=== PATIENT | female | born 1940 | race Caucasian/White ===

== ENCOUNTER → 2019-06-14 | Outpatient (CLI) | payer MEDICARE, OTHER ==
[2019-06-14 16:36] LABS: Basophils # (A) 0.1 k/uL (0-0.2); Basophils % (A) 1 %; Eosinophils # (A) 0.2 k/uL (0-0.7); Eosinophils % (A) 2 %; HCT 41.9 % (34.0-46.0); HGB 13.3 gm/dL (11.4-16.0); Lymphocytes # (A) 3.4 k/uL (1.0-4.8); Lymphocytes % (A) 29 %; MCH 31.2 pg (25.0-35.0); MCHC 31.7 g/dL (31.0-37.0); MCV 98.2 fL (80.0-100.0); Mean Platelet Volume 7.6; Monocytes # (A) 0.8 k/uL (0-1.0); Monocytes % (A) 7 %; Neutrophils # (A) 7.2 k/uL (1.3-7.7); Neutrophils % (A) 61 %; Platelet Count 225 k/uL (150-450); RBC 4.26 m/uL (3.80-5.40); RDW 12.9 % (11.5-15.5); WBC 11.8 k/uL (3.8-10.6)
[2019-06-14 16:46] LABS: ALT 15 U/L (9-52); AST 19 U/L (14-36); African American GFR (CKD) >90 (>60 ml/min/1.73 sqM); Albumin 4.2 g/dL (3.5-5.0); Alkaline Phosphatase 60 U/L (38-126); Anion Gap 9 mmol/L; Blood Urea Nitrogen 20 mg/dL (7-17); Calcium 9.5 mg/dL (8.4-10.2); Carbon Dioxide 26 mmol/L (22-30); Chloride 107 mmol/L (98-107); Glucose 105 mg/dL (74-99); Potassium 4.1 mmol/L (3.5-5.1); Sodium 142 mmol/L (137-145); Total Bilirubin 0.3 mg/dL (0.2-1.3); Total Protein 6.9 g/dL (6.3-8.2)
[2019-06-14 16:48] LABS: Prothrombin Time 10.9 sec (9.0-12.0)
== END | disposition home or self-care (01) ==
LOC: LABPAT 15:17
PROVIDERS: ATTEND Orthopaedic Surgery
DX: Z01.818 Encounter for other preprocedural examination (principal); M16.11 Unilateral primary osteoarthritis, right hip; Z01.812 Encounter for preprocedural laboratory examination
CPT/HCPCS: 80053; 85025; 85610; 87070; 93005

== ENCOUNTER 2019-06-20 09:05 | Inpatient (IN) | payer MEDICARE, OTHER ==
[~2019-06-20 09:05] MED LIST: ACETAMINOPHEN TAB 500 MG TAB PO ONE; DEXAMETHASONE SOD PHOSPHATE 10 MG/ML 1 ML VIAL IV ONE; HYDROmorphone 0.5 MG/0.5 ML SYRINGE IVP PRN; LACTATED RINGERS 1,000 ML IV SCH; MELOXICAM 7.5 MG TAB PO ONE; MIDAZOLAM 2 MG/2 ML VIAL IV PRN; ONDANSETRON 4 MG/2 ML VIAL IVP ONE; TRANEXAMIC ACID 1,000 MG in SODIUM CHLORIDE 0.9% 100 ML IVPB ONE
[2019-06-20] MEDS ORDERED: HYDROcodone/APAP 5-325MG 1 EACH TAB PO PRN (09:32)
[2019-06-20] MEDS ORDERED: HYDROmorphone 0.5 MG/0.5 ML SYRINGE IVP PRN ×3 (09:32)
[2019-06-20] MEDS ORDERED: DIAZEPAM 5 MG TAB PO PRN (09:32)
[2019-06-20] MEDS ORDERED: MAGNESIUM HYDROXIDE 2,400 MG/10 ML CUP PO PRN (09:32)
[2019-06-20] MEDS ORDERED: ONDANSETRON 4 MG/2 ML VIAL IVP PRN (09:32)
[2019-06-20] MEDS ORDERED: NALOXONE 0.4 MG/ML 1 ML VIAL IV PRN (09:32)
[2019-06-20] MEDS ORDERED: LIDOCAINE 1% 20 ML VIAL (10MG/ML) FOR IV START INTRADERMA ONE (09:33)
[2019-06-20] MEDS ORDERED: HEPARIN SODIUM,PORCINE 10,000 UNIT/ML 1 ML VIAL ONE (10:11)
[2019-06-20] MEDS ORDERED: fentaNYL (PF) 50 MCG/ML 2 ML AMP ONE (10:11)
[2019-06-20] MEDS ORDERED: PROPOFOL 10 MG/ML 20 ML VIAL IV ONE (10:11)
[2019-06-20] MEDS ORDERED: SODIUM CHLORIDE 0.9% IRRIG 1,000 ML BTL IRRIGATION ONE (10:11)
[2019-06-20] MEDS ORDERED: TRANEXAMIC ACID 1,000 MG/10 ML VIAL ONE (10:11)
[2019-06-20] MEDS ORDERED: MIDAZOLAM 2 MG/2 ML VIAL ONE (10:11)
[2019-06-20] MEDS ORDERED: SODIUM CHLORIDE 0.9% 100 ML BAG ONE (10:11)
[2019-06-20] MEDS ORDERED: ceFAZolin 3,000 MG in SODIUM CHLORIDE 0.9% IRRIGATIO 3,000 ML IRRIGATION ONE (10:32)
[2019-06-20] MEDS: ROPIVACAINE 246.25 MG, EPINEPHrine 0.5 MG, KETOROLAC 30 MG, cloNIDine HCL/PF 80 MCG, WA... MISCELLANE ONE ×10 (10:38→11:21)
--- NOTE | 2019-06-20 11:26 | P.OP ---
Date of Procedure: 06/20/19 Preoperative Diagnosis: Severe osteoarthritis right hip Postoperative Diagnosis: Severe osteoarthritis right hip Procedure(s) Performed: Right total hip arthroplasty with a direct anterior approach Implants: Easley and nephew Polarstem size 3 standard Easley [employer] Nephew R3, 3 hole acetabular shell, 48 mm E[employer]ley [employer]hew reflection 6.5 mm cancellus screw, 20 mm 2 E[employer]ley [employer] Nephew R3, XLPE 20 acetabular liner Easley [employer] Nephew Oxinium femoral head 32 m, +0 All components were press-fit. The articulation is Oxinium on polyethylene. Anesthesia: spinal Surgeon: Yan Lei Garbage Worker #1: Ria Bell Estimated Blood Loss (ml): 200 (68 mL returned with Cell Saver) Pathology: other (Femoral head) Condition: stable Disposition: PACU Indications for Procedure: After failure of conservative treatment we discussed the surgical and nonsurgical treatment options at length. Patient wishes to proceed with a total hip arthroplasty with a direct anterior approach. Complications specific to this procedure were discussed at length, including but not limited to infection, leg length discrepancy, dislocation, and nerve injury. Patient is aware of all these complications and informed consent was obtained Operative Findings: The operative findings are consistent with severe osteoarthritis of the right hip Description of Procedure: Patient was seen and evaluated in the preoperative area, consent was reviewed, and the surgical site was marked with a skin marker. Patient was then brought to the operating room and given prophylactic antibiotics intravenously. 1 g of Tranexamic acid was also given. A spinal anesthetic was administered by the anesthesia department. The patient was then placed on the Jones table with the bony prominences well-padded. The hip area was then prepped and draped in usual sterile fashion. A universal timeout was then performed, which confirmed the patient's name, surgical site, ALLERGIES, and procedure being performed. Next the incision site was located at 1 cm distal and 1 cm lateral to the anterior superior iliac spine. The skin and subcutaneous tissues were sharply incised. Incision was carefully dissected down to the fascia overlying the tensor fascia minerva muscle. This fascia was then incised in line with the incision. Next, using blunt finger dissection, the tensor fascia minerva muscle was dissected off its investing fascia. The muscle was then carefully retracted laterally with a cobra retractor over the lateral neck of the femur. Next, the circumflex vessels were identified and cauterized using the AquaMantis device. The anterior hip capsule was then exposed. The capsule was then opened and an inverted T fashion. Cobra retractors were then placed intracapsularly. The proximal femur was then visualized. The femoral neck was then osteotomized appropriate level above the lesser trochanter. Small amount of traction was placed with the Jones table. A small wedge of bone was then removed from the remaining femoral head. Next, using a corkscrew femoral head was easily removed from the acetabulum. On gross visual inspection, the femoral head had complete loss of articular cartilage in mu ltiple periarticular osteophytes. Attention was then turned to the acetabulum. the acetabulum was exposed and any remaining labrum was excised. Sequential reaming of the acetabulum was performed using fluoroscopic guidance. When the appropriate size was reached, a trial was then placed. The position and fit of the trial was checked with fluoroscopy. The trial was then removed. Then, using fluoroscopic guidance, the final implant was impacted at 20 of anteversion and 40 of abduction, and fully seated in the acetabulum. 2 screws were then placed in the acetabulum. Again fluoroscopy was used to check position of the screws. Next, the liner was then impacted, with a 20 elevated liner located in the anterior superior quadrant. Component locking was confirmed. Attention was then directed to the femur. With the aid of the Jones table, the femur was externally rotated to approximately 130, extended, and abducted under the opposite leg. A side hook was then placed under the proximal femur, and the side hook elevator was used to elevate the proximal femur. Retractors were then placed. A capsular release was performed, as well as a release of the conjoined tendon, which afforded excellent visualization of the proximal femur. Next, a box osteotome was used to lateralize the proximal femur. A spring former hand was then used to locate the femoral canal. Sequential broaching was then performed with appropriate size which afforded excellent fixation in the proximal femur. A trial was then placed with appropriate head and neck, and the hip was gently reduced with the aid of the Jones table. Fluoroscopy was then used to check position of the components, as well as to ensure equal leg lengths. The hip was then gently dislocated and the trials were then removed. Final implants were then impacted and the hip was again reduced. Final fluoroscopic x-rays confirmed that the components were in anatomic position, as well as equal leg lengths. The hip was also taken through range of motion, and found to be stable. The hip was then copiously irrigated with antibiotic solution with pulsatile lavage. The hip was then irrigated with Irrisept solution. The soft tissues were then injected with a ropivacaine solution, which consisted of 246.25 mg of ropivacaine, 0.5 mg of epinephrine, 30 mg of Toradol, 80 g of clonidine, and 48.45 mL of sterile water, for a total of 100 mL of fluid injected. A second dose of 1 g of Tranexamic acid was also given. the fascia was then closed with 2-0 strata fix suture. The subcutaneous tissue was closed with 3-0 Vicryl. The subcuticular tissue was closed with 3-0 strata fix suture. The skin was then closed with Dermabond glue and a sterile silver dressing. The patient was then transferred to the recovery room in stable co ndition. The clinical project assistant ALEX Allen was required due to the complexity of surgery, and the need for skilled surgical endoscopist for positioning, draping, exposure, retraction, and closure of the wound.
--- NOTE | 2019-06-20 12:17 | XR ---
EXAMINATION TYPE: XR Hip Limited RT DATE OF EXAM: 06/20/2019 CLINICAL HISTORY: Right hip pain and osteoarthritis. TECHNIQUE: Single AP portable view of right hip is obtained immediately postoperatively. COMPARISON: None. FINDINGS: Metallic hardware from right hip arthroplasty is seen and appears satisfactory in alignment and position. There is evidence of recent surgery with subcutaneous gas noted laterally. IMPRESSION: Metallic hardware from right hip arthroplasty is satisfactory in position.
--- NOTE | 2019-06-20 12:20 | XR ---
EXAMINATION TYPE: XR Hip Limited RT, FL guidance operating room DATE OF EXAM: 06/20/2019 CLINICAL HISTORY: Fluoroscopic documentation of a right hip arthroplasty placement. TECHNIQUE: Fluoroscopy. COMPARISON: None. FINDINGS: Fluoroscopic guidance was provided during procedure performed by Dr. Lei. A total of 42 seconds of fluoroscopic time was utilized during the procedure and 2 spot images was acquired. IMPRESSION: As Above.
[2019-06-20] MEDS ORDERED: SODIUM CHLORIDE 0.9% 1,000 ML IV ONE (12:41)
[2019-06-20 13:45] VITALS: BMI 30.9
--- NOTE | 2019-06-20 14:48 | P.CONS ---
History of Present Illness - Reason for Consult Consult date: 06/20/19 - History of Present Illness The patient is an 79-year-old female with a past medical history of hypertension, hyperlipidemia, severe right hip OA, and COPD who was admitted for elective right total hip replacement. The patient underwent the procedure earlier today and was seen postoperatively on the surgical unit. She reported continued pain at a 5 out of 10 but denied any additional complaints. She denied chest pain, fever, chills, shortness of breath, nausea and vomiting, diarrhea, or abdominal pain. Review of Systems Pertinent positives and negatives as discussed in HPI, a complete review of systems was performed and all other systems are negative. Past Medical History Past Medical History: Atrial Fibrillation, Asthma, GERD/Reflux, Hyperlipidemia, Hypertension, Osteoarthritis (OA) Additional Past Medical History / Comment(s): "borderline diabetes" History of Any Multi-Drug Resistant Organisms: None Reported Past Surgical History: Hysterectomy, Pacemaker, Tonsillectomy Additional Past Surgical History / Comment(s): [facility] Pacemaker,partial hyst,achilles tend repair,dental wok Additional Past Anesthesia/Blood Transfusion Reaction / Comm: has woken up twice during surgeries (hysterectomy and achilles tendon repair) Type of Cardiac Device: Permanent Pacemaker Device Placement Date:: February 2019 Past Psychological History: Anxiety, Depression Smoking Status: Former smoker Past Alcohol Use History: None Reported Additional Past Alcohol Use History / Comment(s): quit smoking April 2019,started at age 20 on and <1ppd Past Drug Use History: None Reported - Past Family History Mother Family Medical History: Deep Vein Thrombosis (DVT) Medications and Allergies Home Medications Medication Instructions Recorded Confirmed Type Acetaminophen [Tylenol Arthritis] 650 mg PO Q6H PRN 06/16/19 06/20/19 History Apixaban [Eliquis] 5 mg PO BID 06/16/19 06/20/19 History Atorvastatin [Lipitor] 40 mg PO HS 06/16/19 06/20/19 History Diltiazem HCl [Cartia Xt] 180 mg PO QAM 06/16/19 06/20/19 History Levothyroxine Sodium [Synthroid] 125 mcg PO QAM 06/16/19 06/20/19 History Montelukast Sodium [Singulair] 10 mg PO HS 06/16/19 06/20/19 History Omeprazole 20 mg PO QAM 06/16/19 06/20/19 History Oxybutynin Chloride [Ditropan] 5 mg PO BID 06/16/19 06/20/19 History Vitamin E 180 unit PO DAILY 06/16/19 06/20/19 History Allergies Allergy/AdvReac Type Severity Reaction Status Date / Time adhesive tape Allergy Rash/Hives Verified 06/20/19 12:07 states "paper tape is ok" gabapentin [From Neurontin] Allergy Rash/Hives Verified 06/20/19 12:07 Physical Exam Vitals: Vital Signs Temp Pulse Resp BP Pulse Ox 06/20/19 12:20 60 16 115/55 95 06/20/19 12:05 60 16 107/52 99 06/20/19 11:50 97.3 F L 62 13 102/58 96 06/20/19 09:29 98.2 F 68 17 187/85 97 Intake and Output 06/19/19 06/20/19 06/20/19 22:59 06:59 14:59 Intake Total 1051 Output Total 200 Balance 851 Intake: IV 1051 Output: Estimated Blood Loss 200 General: non toxic, in mild distress due to pain, appears at stated age, normal weight Derm: no unusual rashes/lesions no unusual ecchymoses, warm, dry Head: atraumatic, normocephalic, symmetric Eyes: EOMI, no lid lag, anicteric sclera, pupils equal round reactive to light ENT: Nose and ears atraumatic, no thrush, no pharyngeal erythema Neck: No thyromegaly, no cervical lymphadenopathy, trachea midline, supple Mouth: no lip lesion, mucus membranes moist Cardiovascular: S1S2 reg, no murmur, positive posterior tibial pulse bilateral, no edema, capillary refill less than 2 seconds Lungs: CTA bilateral, no rhonchi, no rales , no accessory muscle use Abdominal: soft, nontender to palpation, no guarding, no appreciable organomegaly, normal bowel sounds Ext: no gross muscle atrophy, muscle strength 5 out of 5 in all extremities grossly except RLE due to pain, R anterior hip dressing clean and dry, no contractures, Neuro: CN II-XI grossly intact, light touch intact all 4 extremities, finger to nose within normal limits, Psych: Alert, oriented, appropriate affect Assessment and Plan Plan: Status post right total hip replacement -As per orthopedic service Postoperative pain -Currently on Dilaudid. Defer to orthopedic service Chronic conditions: Hypertension, hyperlipidemia, hypothyroidism -Resume home medications
[2019-06-20] MEDS: SODIUM CHLORIDE 0.9% 1,000 ML IV SCH (18:16)
[2019-06-20] MEDS: SENNOSIDES-DOCUSATE SODIUM 1 EACH TAB PO SCH (21:53)
[2019-06-20] MEDS: MONTELUKAST 10 MG TAB PO SCH (21:53)
[2019-06-20] MEDS: OXYBUTYNIN CHLORIDE 5 MG TAB PO SCH (21:53)
[2019-06-20] MEDS: ATORVASTATIN 40 MG TAB PO SCH (21:53)
[2019-06-21] MEDS: HYDROcodone/APAP 5-325MG 1 EACH TAB PO PRN ×3 (01:15→20:14)
[2019-06-21] MEDS: SODIUM CHLORIDE 0.9% 1,000 ML IV SCH ×2 (04:48→19:26)
[2019-06-21] MEDS: LEVOTHYROXINE 125 MCG TAB PO SCH (06:15)
--- NOTE | 2019-06-21 09:01 | P.PN ---
Subjective Progress Note Date: 06/21/19 This is an 79-year-old female who is status post right total hip arthroplasty. This is postoperative day #1. Patient is seen and evaluated at bedside with Dr. Yan Lei. Patient states that her pain is well controlled. Patient denies any fever/chills, numbness, weakness, tingling, abdominal pain, shortness of breath or chest pain. Objective - Vital Signs Vital signs: Vital Signs Temp 98.3 F 06/21/19 07:00 Pulse 58 L 06/21/19 08:28 Resp 16 06/21/19 08:28 BP 121/73 06/21/19 07:00 Pulse Ox 95 06/21/19 07:00 Intake & Output 06/20/19 06/21/19 06/21/19 18:59 06:59 18:59 Intake Total 2061 835 60 Output Total 200 425 425 Balance 1861 410 -365 Intake: IV 1051 Intake, IV Titration 310 775 Amount Sodium Chloride 0.9% 1, 260 725 000 ml @ 65 mls/hr IV . [id number] [facility] Rx#:[id number] ceFAZolin 2 gm In Sodium 50 50 Chloride 0.9% 50 ml @ 100 mls/hr IVPB Q8H [facility] Rx#: [id number] Oral 700 60 60 Output: Urine 425 425 Estimated Blood Loss 200 Other: Voiding Method Bedside Commode Bedside Commode # Voids 1 1 - Exam Vital signs are stable. Patient is in no acute distress and is alert and oriented 3. Calf is soft and nontender to palpation. Dressing is clean, dry, and intact. Patient has full foot and ankle motion without pain or difficulty. Neurovascular status and circulatory status are intact. Assessment and Plan (1) Osteoarthritis of right hip Current Visit: Yes Status: Acute Code(s): M16.11 - UNILATERAL PRIMARY OSTEOARTHRITIS, RIGHT HIP SNOMED Code(s): 299418349909461 (2) Status post total hip replacement, right Current Visit: Yes Status: Acute Code(s): Z96.641 - PRESENCE OF RIGHT ARTIFICIAL HIP JOINT SNOMED Code(s): 492611151675 Plan: Continue routine postop care and pain control. Continue anticoagulation with Eliquis. Weightbearing as tolerated with a walker. Leave dressing in place for 10 days. Appreciate input from medicine. Likely discharge to rehab on Wednesday.
[2019-06-21 09:15] LABS: Basophils # (A) 0.1 k/uL (0-0.2); Basophils % (A) 0 %; Eosinophils # (A) 0.1 k/uL (0-0.7); Eosinophils % (A) 0 %; Hypochromasia Slight; Lymphocytes # (A) 1.5 k/uL (1.0-4.8); Lymphocytes % (A) 8 %; MCH 35.2 pg (25.0-35.0); MCHC 34.1 g/dL (31.0-37.0); Macrocytosis Slight; Mean Platelet Volume 7.1; Monocytes # (A) 1.2 k/uL (0-1.0); Monocytes % (A) 7 %; Neutrophils # (A) 15.7 k/uL (1.3-7.7); Neutrophils % (A) 84 %; Platelet Count 225 k/uL (150-450); RBC 3.68 m/uL (3.80-5.40); RDW 13.1 % (11.5-15.5); WBC 18.7 k/uL (3.8-10.6)
[2019-06-21 09:16] LABS: MCV 103.2 fL (80.0-100.0)
[2019-06-21] MEDS: OXYBUTYNIN CHLORIDE 5 MG TAB PO SCH ×2 (09:45→20:14)
[2019-06-21] MEDS: DILTIAZEM CD 180 MG CAP.ER.24H PO SCH (09:45)
[2019-06-21] MEDS: APIXABAN 5 MG TAB PO SCH ×2 (09:45→20:14)
--- NOTE | 2019-06-21 09:48 | P.PN ---
Subjective Progress Note Date: 06/21/19 Patient was seen and examined at the bedside on 06/21/2019. The patient endorsed continued pain at 4 out of 10 in the R hip though denied any additional complaints. Denied chest pain, SOB, nausea, vomiting, fever, or chills. She hasn't been out of bed yet and is waiting for physical therapy. Objective - Vital Signs Vital signs: Vital Signs Temp 98.3 F 06/21/19 07:00 Pulse 58 L 06/21/19 08:28 Resp 16 06/21/19 08:28 BP 121/73 06/21/19 07:00 Pulse Ox 95 06/21/19 07:00 Intake & Output 06/20/19 06/21/19 06/21/19 18:59 06:59 18:59 Intake Total 2061 835 60 Output Total 200 425 425 Balance 1861 410 -365 Intake: IV 1051 Intake, IV Titration 310 775 Amount Sodium Chloride 0.9% 1, 260 725 000 ml @ 65 mls/hr IV . [id number] [facility] Rx#:[id number] ceFAZolin 2 gm In Sodium 50 50 Chloride 0.9% 50 ml @ 100 mls/hr IVPB Q8H [facility] Rx#: [id number] Oral 700 60 60 Output: Urine 425 425 Estimated Blood Loss 200 Other: Voiding Method Bedside Commode Bedside Commode # Voids 1 1 - Exam General: Non-toxic, in no acute distress, appears stated age HEENT: NC/AT, anicteric sclerae, moist conjunctiva, no lid-lag, PERRLA Cardiovascular: S1/S2 wnl, no murmurs, rubs, or gallops Lungs: Clear to auscultation, normal respiratory effort, no accessory muscle use Abdominal: Soft, non-tender, non-distended, no guarding, rebound, or rigidity Skin: Warm, dry Extremities: No edema or contractures, R anterior hip dressing clean and dry Psychiatric: Alert and oriented to person, place and time, appropriate affect Neuro: CN II-XII grossly intact, no focal deficits - Labs CBC & Chem 7: 06/21/19 08:01 Labs: Abnormal Lab Results - Last 24 Hours (Table) 06/21/19 Range/Units 08:01 WBC 18.7 H (3.8-10.6) k/uL RBC 3.68 L (3.80-5.40) m/uL MCV 103.2 H D (80.0-100.0) fL MCH 35.2 H (25.0-35.0) pg Assessment and Plan Plan: Leukocytosis -Likely secondary to acute stress -Monitor CBC for now Status post right total hip replacement -As per orthopedic service Postoperative pain -Currently on Dilaudid. Defer to orthopedic service Chronic conditions: Hypertension, hyperlipidemia, hypothyroidism, atrial fibrillation -Resume home medications
[2019-06-21] MEDS: SENNOSIDES-DOCUSATE SODIUM 1 EACH TAB PO SCH (20:14)
[2019-06-21] MEDS: MONTELUKAST 10 MG TAB PO SCH (20:14)
[2019-06-21] MEDS: ATORVASTATIN 40 MG TAB PO SCH (20:14)
[2019-06-22 01:26] VITALS: RESP 16
[2019-06-22] MEDS: LEVOTHYROXINE 125 MCG TAB PO SCH (06:13)
[2019-06-22] MEDS: HYDROcodone/APAP 5-325MG 1 EACH TAB PO PRN ×2 (06:15→14:39)
--- NOTE | 2019-06-22 08:01 | P.PN ---
Subjective Progress Note Date: 06/22/19 This is an 79-year-old female who is status post right total hip arthroplasty. This is postoperative day #2. Patient is seen and evaluated at bedside. Patient states that her pain is well controlled and she has been up and walking. Patient denies any fever/chills, numbness, weakness, tingling, abdominal pain, shortness of breath or chest pain. Objective - Vital Signs Vital signs: Vital Signs Temp 98.0 F 06/22/19 07:00 Pulse 64 06/22/19 07:00 Resp 16 06/22/19 07:00 BP 131/73 06/22/19 07:00 Pulse Ox 95 06/22/19 07:00 Intake & Output 06/21/19 06/22/19 06/22/19 18:59 06:59 18:59 Intake Total 1460 Output Total 425 Balance 1035 Intake: Intake, IV Titration 600 Amount Sodium Chloride 0.9% 1, 600 000 ml @ 65 mls/hr IV . [id number] [facility] Rx#:[id number] Oral 860 Output: Urine 425 Other: Voiding Method Toilet Toilet # Voids 3 3 - Exam Vital signs are stable. Patient is in no acute distress and is alert and oriented 3. Calf is soft and nontender to palpation. Dressing is clean, dry, and intact. Patient has full foot and ankle motion without pain or difficulty. Neurovascular status and circulatory status are intact. - Labs CBC & Chem 7: 06/21/19 08:01 Labs: Abnormal Lab Results - Last 24 Hours (Table) 06/21/19 Range/Units 08:01 WBC 18.7 H (3.8-10.6) k/uL RBC 3.68 L (3.80-5.40) m/uL MCV 103.2 H D (80.0-100.0) fL MCH 35.2 H (25.0-35.0) pg Neutrophils # 15.7 H (1.3-7.7) k/uL Monocytes # 1.2 H (0-1.0) k/uL Assessment and Plan (1) Osteoarthritis of right hip Current Visit: Yes Status: Acute Code(s): M16.11 - UNILATERAL PRIMARY OSTEOARTHRITIS, RIGHT HIP SNOMED Code(s): 124374014633866 (2) Status post total hip replacement, right Current Visit: Yes Status: Acute Code(s): Z96.641 - PRESENCE OF RIGHT ARTIFICIAL HIP JOINT SNOMED Code(s): 562694997983 Plan: Continue routine postop care and pain control. Continue anticoagulation with Eliquis. Weightbearing as tolerated with a walker. Leave dressing in place for 10 days. Appreciate input from medicine. Likely discharge to rehab on Wednesday.
[2019-06-22 08:10] LABS: HCT 36.6 % (34.0-46.0); HGB 11.6 gm/dL (11.4-16.0); Hypochromasia Slight; MCH 31.7 pg (25.0-35.0); MCHC 31.7 g/dL (31.0-37.0); MCV 100.2 fL (80.0-100.0); Mean Platelet Volume 7.4; Platelet Count 216 k/uL (150-450); RBC 3.65 m/uL (3.80-5.40); RDW 12.8 % (11.5-15.5); WBC 18.8 k/uL (3.8-10.6)
[2019-06-22] MEDS: SODIUM CHLORIDE 0.9% 1,000 ML IV SCH (08:18)
[2019-06-22] MEDS: APIXABAN 5 MG TAB PO SCH (08:20)
[2019-06-22] MEDS: DILTIAZEM CD 180 MG CAP.ER.24H PO SCH (08:20)
[2019-06-22] MEDS: OXYBUTYNIN CHLORIDE 5 MG TAB PO SCH (08:20)
--- NOTE | 2019-06-22 11:43 | P.PN ---
Subjective Progress Note Date: 06/22/19 Patient was seen and examined at the bedside on 06/22/2019. The patient endorsed continued pain at 7 out of 10 in the R hip upon ambulation though denied any additional complaints. Patient has been ambulating in the room with a walker. Denied chest pain, SOB, nausea, vomiting, fever, or chills. Objective - Vital Signs Vital signs: Vital Signs Temp 98.0 F 06/22/19 07:00 Pulse 64 06/22/19 07:00 Resp 16 06/22/19 07:00 BP 131/73 06/22/19 07:00 Pulse Ox 95 06/22/19 07:00 Intake & Output 06/21/19 06/22/19 06/22/19 18:59 06:59 18:59 Intake Total 1460 Output Total 425 Balance 1035 Intake: Intake, IV Titration 600 Amount Sodium Chloride 0.9% 1, 600 000 ml @ 65 mls/hr IV . [id number] [facility] Rx#:[id number] Oral 860 Output: Urine 425 Other: Voiding Method Toilet Toilet Toilet # Voids 3 3 - Exam General: Non-toxic, in no acute distress, appears stated age HEENT: NC/AT, anicteric sclerae, moist conjunctiva, no lid-lag, PERRLA Cardiovascular: S1/S2 wnl, no murmurs, rubs, or gallops Lungs: Clear to auscultation, normal respiratory effort, no accessory muscle use Abdominal: Soft, non-tender, non-distended, no guarding, rebound, or rigidity Skin: Warm, dry Extremities: No edema or contractures, R anterior hip dressing clean and dry Psychiatric: Alert and oriented to person, place and time, appropriate affect Neuro: CN II-XII grossly intact, no focal deficits - Labs CBC & Chem 7: 06/22/19 07:48 Labs: Abnormal Lab Results - Last 24 Hours (Table) 06/22/19 Range/Units 07:48 WBC 18.8 H (3.8-10.6) k/uL RBC 3.65 L (3.80-5.40) m/uL MCV 100.2 H (80.0-100.0) fL Assessment and Plan Plan: Leukocytosis -Likely secondary to acute stress -Monitor CBC for now Status post right total hip replacement -As per orthopedic service Postoperative pain -Currently on Dilaudid. Defer to orthopedic service Chronic conditions: Hypertension, hyperlipidemia, hypothyroidism, atrial fibrillation -Resume home medications
[2019-06-22 14:56] VITALS: BP 128/76; PULSE 67; TEMP 97.4
--- NOTE | 2019-06-23 08:54 | P.DS ---
Providers Date of admission: 06/20/19 09:05 Expected date of discharge: 06/22/19 Attending physician: Yan Lei Consults: 06/20/19 09:32 Consult Physician Routine Consulting Provider: Gilberto Cottrell Consult Reason/Comments: medical management and anticoagulation Do you want consulting provider notified?: Yes Primary care physician: Tatiana Ingram, NPC - Discharge Diagnosis(es) (1) Osteoarthritis of right hip Status: Acute (2) Status post total hip replacement, right Status: Acute Hospital Course: This is a 79-year-old female with known history of degenerative arthritis of the right hip. The patient presents for evaluation. After discussion and consideration patient elects to proceed with total hip arthroplasty. The patient is seen preoperatively by Dr. Lei and cleared for surgery. Patient is admitted to [facility] on 06/20/2019 for total hip arthroplasty. The procedures performed without complication or sequelae. The patient is doing well postoperatively. Labs and vital signs are stable on day of discharge. On day of discharge patient's hip incision is healing well. There is minimal erythema. There is no drainage noted at this time. There is minimal soft tissue swelling to the hip and thigh. Patient has full foot and ankle motion without difficulty or pain. Neurovascular status to the right lower extremity is intact. Patient is discharged to rehab in good condition. Please see med rec for accurate list of home medications. Plan - Discharge Summary Discharge Rx Participant: No New Discharge Prescriptions: New HYDROcodone/APAP 5-325MG [[place] 5-325] 1 each PO Q6HR PRN #12 tab PRN Reason: Pain Scale 6 To 10 Continue Diltiazem HCl [Cartia Xt] 180 mg PO QAM Atorvastatin [Lipitor] 40 mg PO HS Levothyroxine Sodium [Synthroid] 125 mcg PO QAM Apixaban [Eliquis] 5 mg PO BID Acetaminophen [Tylenol Arthritis] 650 mg PO Q6H PRN PRN Reason: Pain Omeprazole 20 mg PO QAM Montelukast Sodium [Singulair] 10 mg PO HS Vitamin E 180 unit PO DAILY Oxybutynin Chloride [Ditropan] 5 mg PO BID Discharge Medication List Acetaminophen [Tylenol Arthritis] 650 mg PO Q6H PRN 06/16/19 [History] Apixaban [Eliquis] 5 mg PO BID 06/16/19 [History] Atorvastatin [Lipitor] 40 mg PO HS 07/26/19 [History] Diltiazem HCl [Cartia Xt] 180 mg PO QAM 06/16/19 [History] Levothyroxine Sodium [Synthroid] 125 mcg PO QAM 06/16/19 [History] Montelukast Sodium [Singulair] 10 mg PO HS 06/16/19 [History] Omeprazole 20 mg PO QAM 06/16/19 [History] Oxybutynin Chloride [Ditropan] 5 mg PO BID 06/16/19 [History] Vitamin E 180 unit PO DAILY 06/16/19 [History] HYDROcodone/APAP 5-325MG [[place] 5-325] 1 each PO Q6HR PRN #12 tab 06/22/19 [Rx] Follow up Appointment(s)/Referral(s): Tatiana Ingram, VERA [Primary Care Provider] - 1 Week (After ECF) Yan Lei DO [Doctor of Osteopathic Medicine] - 07/05/19 10:00 am Activity/Diet/Wound Care/Special Instructions: Please take medications as prescribed. Leave dressing intact for 10 days. May shower with dressing in place. Weightbearing as tolerated with walker. Please follow up with [facility] and call with any questions or concerns, . Room air regular diet Discharge Disposition: TRANSFER TO SNF/ECF
== END 2019-06-22 17:25 | DRG 470 ==
LOC: 2ORMAIN 09:05 → 4SSUR 11:56
PROVIDERS: ADMIT Orthopaedic Surgery; ATTEND Orthopaedic Surgery
PROC: 0SR906A Replacement of Right Hip Joint with Oxidized Zirconium on Polyethylene Synthetic Substitute, Uncemented, Open Approach (ICD-10-PCS; principal; 2019-06-20 10:15)
DX: M16.11 Unilateral primary osteoarthritis, right hip (principal); J44.9 Chronic obstructive pulmonary disease, unspecified; I10 Essential (primary) hypertension; E78.5 Hyperlipidemia, unspecified; K21.9 Gastro-esophageal reflux disease without esophagitis; I48.91 Unspecified atrial fibrillation; F41.9 Anxiety disorder, unspecified; R73.03 Prediabetes; D72.829 Elevated white blood cell count, unspecified; F32.9 Major depressive disorder, single episode, unspecified; Z95.0 Presence of cardiac pacemaker; Z90.710 Acquired absence of both cervix and uterus; Z79.01 Long term (current) use of anticoagulants; Z79.899 Other long term (current) drug therapy; Z79.890 Hormone replacement therapy; Z87.891 Personal history of nicotine dependence; Z90.89 Acquired absence of other organs; Z98.890 Other specified postprocedural states; Z82.49 Family history of ischemic heart disease and other diseases of the circulatory system; Z88.8 Allergy status to other drugs, medicaments and biological substances; Z91.048 Other nonmedicinal substance allergy status
CPT/HCPCS: 36415; 73501; 85025; 85027; 86850; 86891; 86900; 86901; 88300